=== PATIENT | female | born 1970 | race Hispanic/Latino ===

== ENCOUNTER 2022-01-24 00:42 | Observation (INO) | payer OTHER ==
[2022-01-24 01:38] LABS: ALT (SGPT) 28 U/L (8-55); AST (SGOT) 28 U/L (5-34); Albumin 3.5 g/dL (3.5-5.0); Alkaline Phosphatase 148 U/L (40-110); Anion Gap 12 mmol/L (10-20); BUN (Urea Nitrogen) 12 mg/dL (9.8-20.1); Bilirubin, Total 0.7 mg/dL (0.2-1.2); Calc. Creatinine Clearance 0 mL/min (70-130); Calcium 8.8 mg/dL (7.8-10.44); Carbon Dioxide 22 mmol/L (22-29); Chloride 107 mmol/L (98-107); Estimated GFR 104; Globulin 3.4 g/dL (2.4-3.5); Glucose 131 mg/dL (70-105); Lipase 88 U/L (8-78); Potassium 3.2 mmol/L (3.5-5.1); Protein, Total 6.9 g/dL (6.0-8.3); Sodium 138 mmol/L (136-145)
[2022-01-24 01:47] LABS: Band 10 % (5-11); Eosinophils 2 % (0-10); Hemoglobin 10.3 g/dL (12.0-16.0); Lymphocytes 40 % (21-51); MDiff Complete? YES; Mean Corpuscular HGB CONC 31.8 g/dL (32.0-36.0); Mean Corpuscular Hemoglobin 28.3 pg (27.0-31.0); Mean Corpuscular Volume 89.1 fl (78.0-98.0); Mean Platelet Volume 9.7 fL (7.4-10.4); Monocytes 12 % (0-10); Neutrophil 34 % (42-75); Platelet Count 40 thou/uL (130-400); Platelet Morphology Comment Appears Decreased; RBC Distribution Width 15.2 % (11.5-14.5); RBC Morphology Normal; Red Blood Cell (RBC) Count 3.62 mill/uL (4.20-5.40); White Blood Cell (WBC) Count 1.8 thou/uL (4.8-10.8)
[2022-01-24] MEDS ORDERED: Ipratropium Bromide 2.5 ml Neb ONE (02:11)
[2022-01-24] MEDS ORDERED: Cefepime 2 GM VIAL ONE (03:17)
[2022-01-24] MEDS ORDERED: Vancomycin 1 GM/200 ML BAG ONE (03:21)
[2022-01-24] MEDS ORDERED: Acetaminophen 325 MG TAB PO PRN (04:58)
[2022-01-24] MEDS ORDERED: Ondansetron ODT 4 MG TAB PO PRN (04:58)
[2022-01-24] MEDS ORDERED: Ondansetron PF 4 MG/2 ML Vial IVP PRN (04:58)
[2022-01-24] MEDS ORDERED: Potassium Chloride 20 MEQ TAB PO SCH (05:00)
[2022-01-24] MEDS ORDERED: Azithromycin 500 MG in Sodium Chloride 0.9% 250 ML 250 ML IVPB SCH (05:00)
[2022-01-24] MEDS ORDERED: Ibuprofen 200 MG TAB PO PRN (05:03)
[2022-01-24 05:42] VITALS: BMI 25.6
[2022-01-24] MEDS ORDERED: cefTRIAXone\\ROCEPHIN 1 GM in Sodium Chloride 0.9% 100 ML IVPB SCH (06:00)
[2022-01-24 08:23] LABS: Reticulocyte Count 2.2 % (0.5-1.5)
[2022-01-24 08:38] LABS: INR-International Normal Ratio 1.3; PTT 30.6 sec (22.9-36.1); Prothrombin Time 16.3 sec (12.0-14.7)
[2022-01-24 09:01] LABS: HBCM Index 0.06 S/CO (0-0.79); HIV (1/2) Antibody/Antigen Non-Reactive (NonReactive); HIV 1/2 INDEX 0.18 S/CO (<1.00); Hep A IgM AB Non-Reactive (NonReactive); Hep A IgM S/CO 0.12 S/CO (0-0.79); Hep B Surf Ag Non-Reactive S/CO (NonReactive); Hep C IgG Ab Non-Reactive (NonReactive); Hep C Index 0.08 S/CO (0-0.79); Hepatitis B Core IgM Abs Non-Reactive (NonReactive)
[2022-01-24] MEDS ORDERED: Albuterol Sulfate 2.5 mg/3 ml Neb NEB SCH (13:00)
[2022-01-24] MEDS ORDERED: predniSONE 20 MG TAB PO SCH (15:15)
[2022-01-24 15:56] LABS: Amphetamine Not Detected (NotDetected); Barbiturates Screen Not Detected (NotDetected); Benzodiazepine Screen Not Detected (NotDetected); Cocaine Metabolite Screen Not Detected (NotDetected); Methadone Not Detected (NotDetected); Methamphetamine Not Detected (NotDetected); Opiate Screen Not Detected (NotDetected); Oxycodone Screen Not Detected (NotDetected); Phencyclidine (PCP) Not Detected (NotDetected); THC/Cannabinoid Screen Not Detected (NotDetected); Tricyclic Screen Not Detected (NotDetected)
[2022-01-24 17:50] VITALS: BP 120/72; TEMP 98.3
[2022-01-24] MEDS ORDERED: Albuterol 200 PUFF (6.7GM INHALER) INH SCH (19:00)
[2022-01-24] MEDS ORDERED: Albuterol Sulfate 2.5 mg/0.5 ml Neb NEB SCH (19:00)
[2022-01-24] MEDS ORDERED: Doxycycline 100 MG CAP PO SCH (21:00)
[2022-01-25] MEDS ORDERED: predniSONE 20 MG TAB PO SCH (08:00)
[2022-01-25] MEDS ORDERED: prednisoLONE 10 MG ODT TAB PO SCH (09:00)
== END 2022-01-24 19:10 | disposition home or self-care (01) ==
LOC: ERS 00:42 → INTOOBSV 02:55 → SURG A 02:55
PROVIDERS: ADMIT Student in an Organized Health Care Education/Training Program; ATTEND Student in an Organized Health Care Education/Training Program
DX: J18.9 Pneumonia, unspecified organism (principal); D61.818 Other pancytopenia; I10 Essential (primary) hypertension; E78.5 Hyperlipidemia, unspecified; R01.1 Cardiac murmur, unspecified; K74.60 Unspecified cirrhosis of liver; R73.03 Prediabetes; F14.11 Cocaine abuse, in remission; Z87.891 Personal history of nicotine dependence; Z20.822 Contact with and (suspected) exposure to COVID-19
CPT/HCPCS: 36415; 71045; 80053; 80074; 80306; 80307; 83605; 83615; 83690; 83880; 84145; 84484; 85025; 85046; 85060; 85610; 85652; 85730; 86140; 86480; 87040; 87086; 87389; 87633; 87804; 93005; 94640; 96375; G0378; J0456; J0692; J0696; J1956; J3370; J3490; J7050; J7512; J7611; J7620; U0003; U0005